=== PATIENT | female | born 1950 | race Caucasian/White ===

== ENCOUNTER → 2016-06-01 | Outpatient (CLI) | payer MEDICARE, OTHER ==
[~2016-06-01] MED LIST: BUPR-50 PO; CELE-85 PO; CLON-202 PO; CYAN10009 PO; ESTR10TA PO; LEVO50TA69 PO; MULT-806 PO; RANI150T12 PO; RIFA200T7 PO; [UNRECOGNIZED DRUG - CODE] PO
== END ==
LOC: WC.BC 10:21
DX: Z12.31 Encounter for screening mammogram for malignant neoplasm of breast (principal); N64.59 Other signs and symptoms in breast
CPT/HCPCS: 77063; G0202